=== PATIENT | male | born 1960 | race Caucasian/White ===

== ENCOUNTER 2023-03-16 05:35 | Inpatient (IN) | payer OTHER ==
[2023-03-16 05:47] VITALS: BMI 28.5
[2023-03-16] MEDS ORDERED: PANTOPRAZOLE SODIUM 40 MG VIAL IVPUSH ONE (05:58)
[2023-03-16] MEDS ORDERED: SODIUM CHLORIDE 0.9% 500 ML INFUS.BAG IV ONE (05:58)
[2023-03-16] MEDS ORDERED: OCTREOTIDE ACETATE 50 MCG/1 ML - 1 ML VIAL IVPUSH ONE (05:59)
[2023-03-16] MEDS ORDERED: FAMOTIDINE 20 MG/50 ML IVPB 20 MG/50 ML MG IVPB ONE (05:59)
[2023-03-16] MEDS ORDERED: MAG HYDROX/AL HYDROX/SIMETH -MYLANTA- ORAL SUSPENSION PO ONE (06:00)
[2023-03-16] MEDS ORDERED: PANTOPRAZOLE SODIUM 40 MG/100 ML BAG IVPB ONE ×2 (06:02→22:06)
[2023-03-16] MEDS ORDERED: OCTREOTIDE ACETATE 100 MCG/1 ML ONE (06:02)
[2023-03-16] MEDS ORDERED: MAG HYDROX/AL HYDROX/SIMETH 30 ML UNIT-DOSE CUP ONE (06:08)
[2023-03-16] MEDS ORDERED: FAMOTIDINE 10 MG/ML VIAL IVPB ONE (06:10)
[2023-03-16 06:29] LABS: BASO % 1.1 % (0-2.0); EOS % 3.1 % (0-4.5); HEMATOCRIT 45.2 % (35.4-49); HEMOGLOBIN 15.3 GM/dL (11.7-16.9); MCH 30.7 pg (25.7-33.7); MEAN CELL VOLUME 90.4 fl (80-96); MEAN PLT VOLUME 7.4 fl (7.5-11.1); MONO % 5.5 % (3.8-10.2); NEUT % 58.3 % (42.8-82.8); PLATELET COUNT 338 10^3/uL (134-434); RDW 13.4 % (11.9-15.9); WHITE BLOOD COUNT 7.7 K/mm3 (4.0-10.0)
[2023-03-16 06:36] LABS: INR 1.01 (0.83-1.09); PROTHROMBIN TIME (PATIENT) 11.7 SEC (9.7-13.0)
[2023-03-16 07:57] LABS: POTASSIUM 4.1 mmol/L (3.5-5.1)
[2023-03-16 07:59] LABS: CALCIUM 8.5 mg/dL (8.5-10.1)
[2023-03-16 08:00] LABS: ALBUMIN 3.6 g/dl (3.4-5.0); BLOOD UREA NITROGEN 14.3 mg/dL (7-18)
[2023-03-16 08:03] LABS: CREATININE 0.9 mg/dL (0.55-1.3)
[2023-03-16 08:04] LABS: TOT PROT 7.6 g/dl (6.4-8.2)
[2023-03-16 08:05] LABS: BILIRUBIN,TOTAL 0.3 mg/dL (0.2-1)
[2023-03-16] MEDS ORDERED: SODIUM CHLORIDE 1,000 ML IV SCH (10:00)
[2023-03-16] MEDS ORDERED: ACETAMINOPHEN 1000 MG/100 ML BAG IVPB PRN (10:05)
[2023-03-16] MEDS ORDERED: ONDANSETRON 4 MG/2 ML VIAL IVPUSH PRN (10:05)
[2023-03-16 11:15] LABS: PH,URINE 5.5 (5.0-8.0); URINE APPEARANCE CLEAR; URINE BILIRUBIN NEGATIVE (NEGATIVE); URINE COLOR YELLOW; URINE GLUCOSE (UA) NEGATIVE (NEGATIVE); URINE KETONE NEGATIVE (NEGATIVE); URINE LEUK ESTERASE NEGATIVE (NEGATIVE); URINE NITRITE NEGATIVE (NEGATIVE); URINE PROTEIN NEGATIVE (NEGATIVE); URINE UROBILINOGEN 0.2 mg/dL (0.2-1.0)
[2023-03-16 13:08] LABS: HEMOGLOBIN 14.6 GM/dL (11.7-16.9); MCH 30.8 pg (25.7-33.7); MCHC 34.8 g/dl (32.0-35.9); MEAN CELL VOLUME 88.6 fl (80-96); MEAN PLT VOLUME 7.3 fl (7.5-11.1); PLATELET COUNT 296 10^3/uL (134-434); RBC 4.73 M/mm3 (4.00-5.60); RDW 13.4 % (11.9-15.9); WHITE BLOOD COUNT 8.3 K/mm3 (4.0-10.0)
[2023-03-16] MEDS ORDERED: ACETAMINOPHEN INJECTION 100 ML IVPB ONE ×2 (17:45→22:06)
[2023-03-16] MEDS: PANTOPRAZOLE SODIUM 40 MG VIAL IVPUSH SCH (22:02)
[2023-03-17 06:28] LABS: EOS % 3.6 % (0-4.5); HEMATOCRIT 40.8 % (35.4-49); HEMOGLOBIN 13.6 GM/dL (11.7-16.9); LYMPH % 30.5 % (8-40); MCH 29.9 pg (25.7-33.7); MCHC 33.4 g/dl (32.0-35.9); MEAN CELL VOLUME 89.7 fl (80-96); MEAN PLT VOLUME 7.7 fl (7.5-11.1); MONO % 5.8 % (3.8-10.2); NEUT % 59.1 % (42.8-82.8); PLATELET COUNT 294 10^3/uL (134-434); RBC 4.54 M/mm3 (4.00-5.60); RDW 13.3 % (11.9-15.9); WHITE BLOOD COUNT 7.3 K/mm3 (4.0-10.0)
[2023-03-17 06:48] LABS: POTASSIUM 4.2 mmol/L (3.5-5.1)
[2023-03-17 06:51] LABS: CALCIUM 8.1 mg/dL (8.5-10.1)
[2023-03-17 06:52] LABS: ALBUMIN 3.1 g/dl (3.4-5.0); BLOOD UREA NITROGEN 9.9 mg/dL (7-18)
[2023-03-17 06:55] LABS: CREATININE 0.8 mg/dL (0.55-1.3); PHOSPHOROUS 2.6 mg/dL (2.5-4.9)
[2023-03-17 06:56] LABS: TOT PROT 6.7 g/dl (6.4-8.2)
[2023-03-17 06:57] LABS: BILIRUBIN,TOTAL 0.5 mg/dL (0.2-1)
[2023-03-17] MEDS ORDERED: PANTOPRAZOLE SODIUM 40 MG VIAL ONE (10:42)
[2023-03-17] MEDS: PANTOPRAZOLE SODIUM 40 MG VIAL IVPUSH SCH (10:44)
[2023-03-17] MEDS ORDERED: MAG HYDROX/AL HYDROX/SIMETH 30 ML UNIT-DOSE CUP PO PRN (15:42)
[2023-03-17] MEDS: PANTOPRAZOLE 40 MG TABLET PO SCH (21:19)
[2023-03-18] MEDS: SODIUM CHLORIDE NASAL SPRAY 44 ML BOTTLE NS PRN (07:09)
[2023-03-18 08:14] LABS: BASO % 0.9 % (0-2.0); EOS % 2.4 % (0-4.5); HEMATOCRIT 42.9 % (35.4-49); HEMOGLOBIN 14.1 GM/dL (11.7-16.9); LYMPH % 23.5 % (8-40); MCH 29.5 pg (25.7-33.7); MCHC 32.8 g/dl (32.0-35.9); MEAN CELL VOLUME 89.9 fl (80-96); MONO % 5.4 % (3.8-10.2); NEUT % 67.8 % (42.8-82.8); PLATELET COUNT 291 10^3/uL (134-434); RBC 4.77 M/mm3 (4.00-5.60); RDW 13.5 % (11.9-15.9); WHITE BLOOD COUNT 8.1 K/mm3 (4.0-10.0)
[2023-03-18 08:32] LABS: POTASSIUM 3.8 mmol/L (3.5-5.1)
[2023-03-18 08:38] LABS: CALCIUM 8.6 mg/dL (8.5-10.1)
[2023-03-18 08:39] LABS: ALBUMIN 3.3 g/dl (3.4-5.0); BLOOD UREA NITROGEN 10.9 mg/dL (7-18)
[2023-03-18 08:40] LABS: HEMATOCRIT 42.4 % (35.4-49); HEMOGLOBIN 13.9 GM/dL (11.7-16.9); MCH 29.6 pg (25.7-33.7); MCHC 32.9 g/dl (32.0-35.9); MEAN CELL VOLUME 89.9 fl (80-96); MEAN PLT VOLUME 7.9 fl (7.5-11.1); PLATELET COUNT 286 10^3/uL (134-434); RBC 4.71 M/mm3 (4.00-5.60); RDW 13.5 % (11.9-15.9)
[2023-03-18 08:42] LABS: CREATININE 0.8 mg/dL (0.55-1.3)
[2023-03-18 08:43] LABS: BILIRUBIN,TOTAL 0.6 mg/dL (0.2-1); TOT PROT 7.1 g/dl (6.4-8.2)
[2023-03-18] MEDS: PANTOPRAZOLE 40 MG TABLET PO SCH ×2 (10:01→22:01)
[2023-03-18] MEDS: LACTATED RINGERS SOLUTION 1,000 ML/1,000 ML INFUS.BAG IV SCH (12:56)
[2023-03-18] MEDS ORDERED: SODIUM CHLORIDE 1,000 ML IV SCH (15:45)
[2023-03-18 16:32] LABS: HEMATOCRIT 42.1 % (35.4-49); HEMOGLOBIN 14.2 GM/dL (11.7-16.9); MCH 29.7 pg (25.7-33.7); MCHC 33.7 g/dl (32.0-35.9); MEAN CELL VOLUME 88.4 fl (80-96); MEAN PLT VOLUME 7.3 fl (7.5-11.1); PLATELET COUNT 318 10^3/uL (134-434); RBC 4.76 M/mm3 (4.00-5.60); RDW 13.8 % (11.9-15.9)
[2023-03-19] MEDS: LACTATED RINGERS SOLUTION 1,000 ML/1,000 ML INFUS.BAG IV SCH (04:08)
[2023-03-19] MEDS: SODIUM CHLORIDE NASAL SPRAY 44 ML BOTTLE NS PRN (04:09)
[2023-03-19 08:23] LABS: BASO % 0.8 % (0-2.0); EOS % 2.7 % (0-4.5); HEMATOCRIT 41.1 % (35.4-49); HEMOGLOBIN 13.4 GM/dL (11.7-16.9); LYMPH % 31.8 % (8-40); MCH 29.4 pg (25.7-33.7); MCHC 32.7 g/dl (32.0-35.9); MEAN CELL VOLUME 90.1 fl (80-96); MEAN PLT VOLUME 7.6 fl (7.5-11.1); MONO % 5.6 % (3.8-10.2); NEUT % 59.1 % (42.8-82.8); PLATELET COUNT 307 10^3/uL (134-434); RBC 4.56 M/mm3 (4.00-5.60); RDW 13.4 % (11.9-15.9); WHITE BLOOD COUNT 8.9 K/mm3 (4.0-10.0)
[2023-03-19 08:39] LABS: POTASSIUM 4.2 mmol/L (3.5-5.1)
[2023-03-19 08:41] LABS: BLOOD UREA NITROGEN 15.8 mg/dL (7-18); CALCIUM 8.8 mg/dL (8.5-10.1)
[2023-03-19 08:44] LABS: CREATININE 0.9 mg/dL (0.55-1.3)
[2023-03-19] MEDS ORDERED: TETRACAINE/BENZOCAINE/BUTAMBEN 20 GM SPR TP ONE (10:28)
[2023-03-19] MEDS: PANTOPRAZOLE 40 MG TABLET PO SCH (12:09)
[2023-03-19 22:12] VITALS: RESP 18
[2023-03-20] MEDS ORDERED: PANTOPRAZOLE 20 MG TABLET PO SCH (10:00)
[2023-03-20 11:40] VITALS: BP 126/68; PULSE 64; TEMP 97.5
== END 2023-03-20 14:47 | disposition home or self-care (01) | DRG 115 ==
LOC: JER 05:35 → JERBED 07:36 → UNDOADMOB 07:36 → INTOOBSV 07:36 → JERBED 09:51 → J7W 03-17 17:56 → OBSVTOIN 03-18 09:51
PROVIDERS: ADMIT Student in an Organized Health Care Education/Training Program; ATTEND Internal Medicine
PROC: 0DB68ZX Excision of Stomach, Via Natural or Artificial Opening Endoscopic, Diagnostic (ICD-10-PCS; principal; 2023-03-19 10:30)
DX: R04.0 Epistaxis (principal); R07.89 Other chest pain; F10.10 Alcohol abuse, uncomplicated; K29.70 Gastritis, unspecified, without bleeding
CPT/HCPCS: 0241U-QW; 36415; 71046-TC-FY; 80048; 80053; 80061; 81003; 83690; 83735; 84100; 84484; 85025; 85027; 85610; 85730; 86140; 86850; 86900; 86901; 87086; 88305-TC; 93005; 93010; 93306-TC; 99285-25; G0378

== ENCOUNTER 2024-06-04 16:50 | Emergency (ER) | payer OTHER ==
[2024-06-04 16:56] VITALS: BP 129/70; PULSE 65; RESP 18; TEMP 98.5; BMI 28.5
[2024-06-04] MEDS ORDERED: ACETAMINOPHEN 325 MG TABLET (FP) ONE (18:25)
[2024-06-04] MEDS: ACETAMINOPHEN 325 MG TABLET (FP) PO ONE (18:27)
[2024-06-04 18:57] LABS: HEMATOCRIT 46.2 % (35.4-49); HEMOGLOBIN 15.5 G/dL (11.7-16.9); MCH 30.5 pg (25.7-33.7); MCHC 33.4 g/dl (32.0-35.9); MEAN CELL VOLUME 91.2 fl (80-96); MEAN PLT VOLUME 8.1 fl (7.5-11.1); PLATELET COUNT 263.2 10^3/uL (134-434); RBC 5.07 10^6/uL (4.00-5.60); RDW 13.6 % (11.9-15.9)
[2024-06-04] MEDS: SODIUM CHLORIDE 0.9% 1000 ML INFUS.BAG IV ONE (19:00)
[2024-06-04 19:14] LABS: INR 0.99 (0.83-1.09); PROTHROMBIN TIME (PATIENT) 11.3 SEC (9.7-13.0)
[2024-06-04 19:17] LABS: ACTIVATED PTT 36.8 SECONDS (25.2-36.5)
[2024-06-04 19:19] LABS: PLATELET ESTIMATE ADEQUATE
[2024-06-04 19:25] LABS: ALBUMIN 4.4 g/dl (3.4-5.0); BILIRUBIN,TOTAL 0.4 mg/dl (0.2-1); CALCIUM 9.1 mg/dl (8.5-10.1); CREATININE 0.8 mg/dl (0.6-1.3); MAGNESIUM 2.2 mg/dL (1.8-2.4); POTASSIUM 3.9 mmol/L (3.5-5.1); TOT PROT 7.5 g/dl (6.4-8.2)
== END 2024-06-04 22:52 | disposition home or self-care (01) ==
LOC: FER 16:50
DX: N40.1 Benign prostatic hyperplasia with lower urinary tract symptoms (principal); R35.0 Frequency of micturition; R39.15 Urgency of urination; R30.0 Dysuria; R10.32 Left lower quadrant pain; M25.511 Pain in right shoulder; M25.512 Pain in left shoulder; R09.89 Other specified symptoms and signs involving the circulatory and respiratory systems; M54.6 Pain in thoracic spine; K62.89 Other specified diseases of anus and rectum; Z20.822 Contact with and (suspected) exposure to COVID-19
CPT/HCPCS: 0241U-QW; 36415; 74177-TC; 80053; 81003; 83690; 83735; 85027; 85610; 85730; 87086; 99285-25; Q9967